=== PATIENT | male | born 1990 | race Caucasian/White ===

== ENCOUNTER 2017-05-02 02:39 | Emergency (ER) | payer SELFPAY ==
[~2017-05-02] VITALS: Ht 175.3 cm; Wt 70.6 kg
[~2017-05-02 02:39] MED LIST: INDOCIN25 MG PO
[2017-05-02 04:17] LABS: HEMATOCRIT 44.8 % (38.0-50.0); MCH 28.9 PG (29.0-34.0); MCHC 33.9 G/DL (30.0-36.0); MCV 85.2 FL (86-99); MEAN PLAT.VOLUME 10.1 uM^3 (9.0-12.4); PLATELET COUNT 308 K/uL (156-360); RBC DIS.WIDTH-CV 14.2 % (11.8-14.6); RBC DIS.WIDTH-SD 43.8 % (39-53); RED BLOOD COUNT 5.26 M/uL (4.00-5.50); WHITE BLOOD COUNT 10.7 K/uL (4.1-10.2)
[2017-05-02 04:26] LABS: CHLORIDE 104 mEq/L (99-109); POTASSIUM 4.1 mEq/L (3.7-5.4); SODIUM 139 mEq/L (136-147)
[2017-05-02 04:28] LABS: GLUCOSE 93 mg/dL (70-99)
[2017-05-02 04:29] LABS: ANION GAP 11 MEQ/L (2-14)
[2017-05-02 04:30] LABS: TOTAL BILIRUBIN 0.6 mg/dL (0.0-1.0)
[2017-05-02 04:31] LABS: ALKALINE PHOSPHATASE 69 IU/L (3-129)
[2017-05-02 04:32] LABS: GFR ESTIMATE (CALCULATED) > 59 mL/min/
[2017-05-02 04:33] LABS: UREA NITROGEN (BUN) 21 mg/dL (9-23)
[2017-05-02] MEDS ORDERED: NAPROSYN500 MG PO (05:37)
[2017-05-02] MEDS ORDERED: NORCO 5/3251 TABLET PO (05:37)
[2017-05-02 05:54] VITALS: BP 101/60
== END 2017-05-02 05:58 | disposition home or self-care (01) ==
LOC: EME 02:39
PROVIDERS: Physician Assistant
DX: S00.83XA Contusion of other part of head, initial encounter (principal); S20.212A Contusion of left front wall of thorax, initial encounter; S00.31XA Abrasion of nose, initial encounter; S30.811A Abrasion of abdominal wall, initial encounter; Y04.2XXA Assault by strike against or bumped into by another person, initial encounter
CPT/HCPCS: 70450; 70486; 71260; 72125; 73080; 74177; 80053; 85027; 99281; 99285; J2270; J2405